=== PATIENT | male | born 1980 | race African-American/Black ===

== ENCOUNTER 2016-09-10 09:26 | Emergency (ER) | payer BC ==
[~2016-09-10] VITALS: Ht 167.6 cm; Wt 104.3 kg
--- NOTE | ~2016-09-10 | EKG ---
PATIENT: ALIZE MATTSON UNIT #: [id number] Ventricular Rate: 50 BPM Atrial Rate: 50 BPM P-R Interval: 166 ms QRS Duration: 86 ms Q-T Interval: 432 ms QTC Calculation(Bezet): 393 ms P Holcomb: 64 degrees Calculated R Holcomb: 71 degrees Calculated T Holcomb: 54 degrees Diagnosis Line: Sinus bradycardia Diagnosis Line: ST elevation, consider early repolarization, Diagnosis Line: pericarditis, or injury Diagnosis Line: Abnormal ECG Diagnosis Line: No previous ECGs available Diagnosis Line: Confirmed by JUSTIN TEMPLE MD ([id number]) on Diagnosis Line: 09/12/2016 8:55:31 AM INTERPRETING MD: MAVERICK VIVAS
[2016-09-10 10:33] LABS: BASOPHIL# 0.1 X10e3 (0-0.3); BASOPHIL% 0.9 % (0-2.5); EOSINOPHIL# 0.3 X10e3 (0-0.7); EOSINOPHIL% 3.4 % (0.0-7.0); HEMATOCRIT 44.6 % (38.0-50.0); LYMPHOCYTE% 29.4 % (17.0-45.0); MEAN CELL VOLUME 86.3 FL (83-96); MEAN CORPUSCULAR HEMOGLOBIN 28.9 PG (28-34); MEAN CORPUSCULAR HGB CONC 33.5 g/dL (30-36); MEAN PLATELET VOLUME 10.3 FL (6.5-11.5); MONOCYTE# 0.8 X10e3 (0-1.0); MONOCYTE% 7.4 % (3.0-12.0); NEUTROPHIL# 5.9 X10e3 (1.5-7.1); NEUTROPHIL% 58.9 % (40-75); PLATELET COUNT 167 X10e3 (140-420); RED BLOOD COUNT 5.17 X10e (3.90-5.60); RED CELL DISTRIBUTION WIDTH 14.3 % (11.0-15.5); WHITE BLOOD COUNT 10.1 X10e3 (4.0-10.5)
[2016-09-10 10:38] LABS: POC - TROPONIN <0.05 ng/mL (<=0.05)
[2016-09-10 10:38] LABS: DIFF IND NO
[2016-09-10 10:53] LABS: BILIRUBIN, DIRECT 0.1 mg/dL (0.0-0.2); BILIRUBIN,INDIRECT 0.2 mg/dL (0.0-0.9); BILIRUBIN,TOTAL 0.3 mg/dL (0.2-2.0); BUN/CREATININE RATIO 14.44; CALCIUM SERUM 9.1 mg/dL (8.4-10.2); CREATININE SERUM 0.9 mg/dL (0.6-1.4); POTASSIUM 3.7 mmol/L (3.5-5.1)
== END 2016-09-10 12:15 | disposition home or self-care (01) ==
LOC: CED 09:26
PROVIDERS: Emergency Medicine
DX: I10 Essential (primary) hypertension (principal); R53.83 Other fatigue; F17.200 Nicotine dependence, unspecified, uncomplicated
CPT/HCPCS: 36415; 80048; 80076; 82553; 84443; 84484; 85025; 93005; 99283